=== PATIENT | male | born 1960 | race Caucasian/White ===

== ENCOUNTER 2021-03-28 20:18 | Inpatient (IN) | payer OTHER ==
--- NOTE | 2021-03-29 02:10 | ER ---
Nurse's Notes [facility] Name: Livan George Age: 60 yrs Sex: Male : 1960 Arrival Date: 03/28/2021 Time: 20:20 Bed 10 Private MD: Diagnosis: Coronavirus infection, unspecified;Hypoxia Presentation: 03/28 21:19 Chief complaint: Patient states: he tested positive for COVID and is having shortness bb of breath sats are dropping down in the mid 80"s at home. Coronavirus screen: Client reports previous positive COVID test result. Ebola Screen: No symptoms or risks identified at this time. Initial Sepsis Screen: Does the patient meet any 2 criteria? RR > 20 per min. HR > 90 bpm. Yes Does the patient have a suspected source of infection? Yes: Productive cough/pneumonia. Risk Assessment: Do you want to hurt yourself or someone else? Patient reports no desire to harm self or others. Onset of symptoms was March 2021. 21:19 Method Of Arrival: Wheelchair bb 21:19 Acuity: GALLO 3 bb Triage Assessment: 21:22 General: Appears in no apparent distress. uncomfortable, Behavior is calm, cooperative. bb Pain: Complains of pain in all over. Neuro: Level of Consciousness is awake, alert, obeys commands, Oriented to person, place, time, situation. Cardiovascular: Capillary refill < 3 seconds Patient's skin is warm and dry. Respiratory: Reports shortness of breath Onset: The symptoms/episode began/occurred a few days ago, the patient has mild shortness of breath. GI: No signs and/or symptoms were reported involving the gastrointestinal system. Derm: Skin is pink, warm \\T\\ dry. Musculoskeletal: Circulation, motion, and sensation intact. 21:22 Respiratory: Airway is patent Respiratory effort is labored, Respiratory pattern is bb tachypnea Breath sounds are diminished bilaterally. Historical: - Allergies: 21:22 No Known Allergies; bb - Immunization history:: Adult Immunizations up to date, Client reports receiving the 1st dose of the Covid vaccine. - Social history:: Smoking status: Smoking status: Patient denies any tobacco usage or history of. Screenin/18 03:55 Abuse screen: Denies threats or abuse. Nutritional screening: No deficits noted. lh3 Tuberculosis screening: No symptoms or risk factors identified. Fall Risk No fall in past 12 months (0 pts). No secondary diagnosis (0 pts). IV access (20 points). Ambulatory Aid- None/Bed Rest/Nurse Assist (0 pts). Gait- Normal/Bed Rest/Wheelchair (0 pts) Mental Status- Oriented to own ability (0 pts). Total Esparza Fall Scale indicates No Risk (0-24 pts). Assessment: 03:55 Reassessment: Patient appears in no apparent distress at this time. General: Appears in lh3 no apparent distress. Behavior is calm, cooperative, appropriate for age. Cardiovascular: Rhythm is sinus tachycardia. Vital Signs: 03/28 21:19 BP 133 / 82; Pulse 106; Resp 32 S; Temp 101.6(O); Pulse Ox 94% on 2 lpm NC; Weight bb 117.93 kg (R); Height 6 ft. 0 in. (182.88 cm) (R); Pain 5/10; 03/29 04:10 BP 145 / 72; Pulse 96; Resp 18; Temp 100.8; Pulse Ox 95% on 4 lpm NC; lh3 03/28 21:19 Body Mass Index 35.26 (117.93 kg, 182.88 cm) bb ED Course: 03/28 20:20 Patient arrived in ED. wm 21:22 Triage completed. bb 21:22 Arm band placed on Patient placed in waiting room, Patient notified of wait time. bb Family accompanied patient. 23:06 Madeline Ng FNP-C [facility] kb 23:06 Mati Paris MD is Attending Physician. kb 03/29 00:23 CXR XRAY In Process Unspecified. EDMS 01:20 Matilda Hilario, MARCI is Primary Nurse. lh3 02:09 Oren Guzman MD is Hospitalizing Provider. kb 02:10 CBC with Automated Diff Sent. lh3 02:28 COVID-19 : Document "Date of Symptom Onset" if Symptomatic. Sent. lh3 02:29 Blood Culture Sent. lh3 02:29 C-Reactive Protein Sent. lh3 02:29 Basic Metabolic Panel Sent. lh3 02:29 BMP Sent. lh3 02:29 Blood Culture Adult (2) Sent. lh3 02:29 C-Reactive Protein Sent. lh3 02:29 CBC with Diff Sent. lh3 02:29 D-Dimer Sent. lh3 02:29 Ferritin Sent. lh3 02:29 LFT's Sent. lh3 02:29 Lactate Sent. lh3 02:29 Lipase Sent. lh3 02:29 PT-INR Sent. lh3 02:29 Procalcitonin Sent. lh3 02:30 Ptt, Activated Sent. lh3 02:30 Troponin (emerg Dept Use Only) Sent. lh3 03:36 CT Chest For PE Angio In Process Unspecified. EDMS 03:55 Patient has correct armband on for positive identification. Bed in low position. Call 3 light in reach. Side rails up X 1. 03:55 No provider procedures requiring assistance completed. Inserted saline lock: 20 gauge lh3 in right antecubital area, using aseptic technique. 03:55 Inserted saline lock: 18 gauge in left antecubital area, using aseptic technique. 3 Administered Medications: 02:28 Drug: NS 0.9% 1000 ml Route: IV; Rate: 1000 ml; Site: left antecubital; 3 04:11 Follow up: IV Status: Completed infusion; IV Intake: 1000ml lh3 02:29 Drug: Tylenol 1000 mg Route: PO; lh3 04:12 Follow up: Response: No adverse reaction lh3 Intake: 04:11 IV: 1000ml; Total: 1000ml. 3 Outcome: 02:10 Decision to Hospitalize by Provider. kb 19:07 Patient left the ED. iw Signatures: Dispatcher [employer] EDMS Madeline Ng, PELLETIZER OPERATOR-C PELLETIZER OPERATOR-Alethea Collins RN RN bb Williams, Irene, RN RN iw Marsh, Wendy wm Hardee, Latisha, RN RN lh3
--- NOTE | 2021-03-29 02:10 | EDPHYS ---
Physician Documentation [facility] Name: Livan George Age: 60 yrs Sex: Male : 1960 Arrival Date: 03/28/2021 Time: 20:20 Bed 10 Private MD: ED Physician Mati Paris HPI: 03/29 01:57 This 60 yrs old Male presents to ER via Wheelchair with complaints of kb Breathing Difficulty, Fever, General Weakness. 01:57 The patient has shortness of breath at rest. Onset: The symptoms/episode began/occurred kb last week, and became worse. Duration: The symptoms are continuous. The patient's shortness of breath is aggravated by exertion. Associated signs and symptoms: Pertinent positives: non-productive cough. Severity of symptoms: At their worst the symptoms were moderate in the emergency department the symptoms are unchanged. The patient has not experienced similar symptoms in the past. The patient has not recently seen a physician. Pt reports he has had cough, shortness of breath and fever since last week. Took rapid covid test on and it was positive. States symptoms have progressively gotten worse since onset. States he hasn't had really eaten anything in about 5 days. Feels like he is dehydrated. . Historical: - Allergies: 03/28 21:22 No Known Allergies; bb - Immunization history:: Adult Immunizations up to date, Client reports receiving the 1st dose of the Covid vaccine. - Social history:: Smoking status: Smoking status: Patient denies any tobacco usage or history of. ROS: 03/29 01:55 Abdomen/GI: Negative for abdominal pain, nausea, vomiting, diarrhea, and constipation. kb Constitutional: Positive for body aches, chills, fatigue, fever, malaise. Respiratory: Positive for cough, dyspnea on exertion, shortness of breath. Neuro: Positive for weakness. All other systems are negative. Exam: 01:55 Constitutional: This is a well developed, well nourished patient who is awake, alert, kb and in no acute distress. Head/Face: Normocephalic, atraumatic. ENT: Moist Mucous membranes Respiratory: Respirations even and unlabored. No increased work of breathing, no retractions or nasal flaring. Skin: Warm, dry with normal turgor. Normal color. MS/ Extremity: Pulses equal, no cyanosis. Neurovascular intact. Full, normal range of motion. Neuro: Awake and alert, GCS 15, oriented to person, place, time, and situation. Moves all extremities. Normal gait. Psych: Awake, alert, with orientation to person, place and time. Behavior, mood, and affect are within normal limits. Vital Signs: 03/28 21:19 BP 133 / 82; Pulse 106; Resp 32 S; Temp 101.6(O); Pulse Ox 94% on 2 lpm NC; Weight bb 117.93 kg (R); Height 6 ft. 0 in. (182.88 cm) (R); Pain 5/10; 03/29 04:10 BP 145 / 72; Pulse 96; Resp 18; Temp 100.8; Pulse Ox 95% on 4 lpm NC; lh3 03/28 21:19 Body Mass Index 35.26 (117.93 kg, 182.88 cm) bb MDM: 00:46 Patient medically screened. kb 01:41 Data reviewed: vital signs, nurses notes. Data interpreted: Pulse oximetry: on room air kb is 88 %. Interpretation: hypoxia. 02:09 Counseling: I had a detailed discussion with the patient and/or guardian regarding: the kb historical points, exam findings, and any diagnostic results supporting the discharge/admit diagnosis, lab results, radiology results, the need for further work-up and treatment in the hospital. Physician consultation: Kenny GALARZA was contacted at 02:09, regarding admission, to the telemetry unit. patient's condition, and will see patient in ED. 03/28 23:31 Order name: BMP 03/28 23:31 Order name: Blood Culture Adult (2) 03/28 23:31 Order name: C-Reactive Protein kb 03/28 23:31 Order name: CBC with Diff kb 03/28 23:31 Order name: D-Dimer; Complete Time: 02:45 kb 03/28 23:31 Order name: Ferritin; Complete Time: 02:43 kb 03/28 23:31 Order name: LFT's; Complete Time: 02:43 kb 03/28 23:31 Order name: Lactate; Complete Time: 02:43 kb 03/28 23:31 Order name: Lipase; Complete Time: 02:43 kb 03/28 23:31 Order name: PT-INR; Complete Time: 02:45 kb 03/28 23:31 Order name: Procalcitonin; Complete Time: 02:46 kb 03/28 23:31 Order name: Ptt, Activated; Complete Time: 02:45 kb 03/28 23:31 Order name: Troponin (emerg Dept Use Only); Complete Time: 02:43 kb 03/28 23:31 Order name: Basic Metabolic Panel; Complete Time: 02:43 EDMS 03/28 23:31 Order name: CXR XRAY; Complete Time: 15:01 kb 03/28 23:31 Order name: EKG; Complete Time: 23:32 kb 03/28 23:31 Order name: Cardiac monitoring; Complete Time: 02:29 kb 03/28 23:31 Order name: Droplet/Contact Precautions; Complete Time: 02:29 kb 03/28 23:31 Order name: EKG - Nurse/Tech; Complete Time: 02:29 kb 03/28 23:31 Order name: IV Start; Complete Time: 02:29 kb 03/28 23:31 Order name: Blood Culture EDMS 03/28 23:31 Order name: C-Reactive Protein; Complete Time: 02:43 EDMS 03/28 23:31 Order name: CBC with Automated Diff; Complete Time: 02:43 EDMS 03/29 02:06 Order name: COVID-19 : Document "Date of Symptom Onset" if Symptomatic. kb 03/29 02:44 Order name: CT Chest For PE Angio; Complete Time: 15:01 kb 03/29 03:37 Order name: SARS-COV-2 RT PCR; Complete Time: 15:01 EDMS 03/29 09:56 Order name: Glucose, Ancillary Testing; Complete Time: 15:01 EDMS 03/28 23:31 Order name: Labs collected and sent; Complete Time: 02:29 kb 03/28 23:31 Order name: O2 Per Protocol; Complete Time: 02:29 kb 03/28 23:31 Order name: O2 Sat Monitoring; Complete Time: 02:29 kb Administered Medications: 02:28 Drug: NS 0.9% 1000 ml Route: IV; Rate: 1000 ml; Site: left antecubital; lh3 04:11 Follow up: IV Status: Completed infusion; IV Intake: 1000ml lh3 02:29 Drug: Tylenol 1000 mg Route: PO; lh3 04:12 Follow up: Response: No adverse reaction 3 Disposition: 03/30 07:20 Co-signature as Attending Physician, Mati Paris MD I agree with the assessment and tito plan of care. Disposition Summary: 03/29/21 02:10 Hospitalization Ordered Hospitalization Status: Inpatient Admission kb Provider: Oren Guzman Condition: Stable kb Problem: new kb Symptoms: are unchanged kb Bed/Room Type: Standard kb Location: Telemetry/MedSurg (Inpatient)(03/29/21 16:59) dw Room Assignment: 417(03/29/21 16:59) dw Diagnosis - Coronavirus infection, unspecified kb - Hypoxia kb Forms: - Medication Reconciliation Form kb - SBAR form kb Signatures: Dispatcher [employer] EDMS Madeline Ng FNP-C FNP-Ckb Webb, Martha RN RN Rosalia Karimi RN RN Mati Mijares MD MD cha Ballard, Brenda, RN RN Matilda Cantu RN RN 3 Corrections: (The following items were deleted from the chart) 03/29 02:07 01:41 Data interpreted: Pulse oximetry: on room air is 94 %. Interpretation: normal. kb kb 02:10 02:07 CORONAVIRUS ordered. EDMS EDMS 02:41 02:10 Telemetry/MedSurg (Inpatient) kb mw 02:41 02:10 kb mw 03:08 02:45 Chest For PE Angio+CT.RAD.BRZ ordered. EDMS EDMS 16:59 02:41 [facility] ER HOLD mw dw 16:59 02:41 ERHOLD- mw dw
[2021-03-29 02:22] LABS: Absolute Lymphocytes (CBC) 6.7 K/uL (0.7-4.9); Hematocrit 45.6 % (39.6-49.0); Lymphocytes % 44.2 % (15.3-44.8); MPV 7.8 fL (7.6-11.3); RBC Red Blood Cell Count 5.12 M/uL (4.33-5.43)
[2021-03-29 02:25] LABS: Protime INR 1.39
[2021-03-29 02:42] LABS: ALT/SGPT 35 U/L (12-78); AST/SGOT 61 U/L (15-37); Albumin 3.4 g/dL (3.4-5.0); Alkaline Phosphatase 72 U/L (45-117); BUN Blood Urea Nitrogen 20 mg/dL (7-18); Bicarbonate 30 mmol/L (21-32); Bilirubin Direct 0.2 mg/dL (0-0.2); Bilirubin Total 0.5 mg/dL (0.2-1.0); Glucose Level 126 mg/dL (74-106); Lipase 159 U/L (73-393); Potassium 3.8 mmol/L (3.5-5.1); Protein, Total 8.1 g/dL (6.4-8.2); Sodium Level 132 mmol/L (136-145); Troponin (Emerg Dept Use Only) < 0.02 ng/mL (0.0-0.045)
[2021-03-29] MEDS ORDERED: NA CHLORIDE 0.9% 1,000 ML ONE (02:42)
[2021-03-29] MEDS ORDERED: ACETAMINOPHEN 500 MG TAB ONE ×2 (02:42→17:34)
--- NOTE | 2021-03-29 03:56 | P.HP ---
Certification for Inpatient Patient admitted to: Inpatient With expected LOS: >2 Midnights Patient will require the following post-hospital care: None Practitioner: I am a practitioner with admitting privileges, knowledge of patient current condition, hospital course, and medical plan of care. Services: Services provided to patient in accordance with Admission requirements found in Title 42 Section 412.3 of the Code of Federal Regulations <Kenny Barkley - Last Filed: 03/29/21 03:52> Patient History Date of Service: 03/29/21 Reason for admission: COVID-19 pneumonia, hypoxia History of Present Illness: 60-year-old male with history of diabetes mellitus type 2, hypertension, hyperlipidemia, CLL presents emergency department for shortness of breath. Patient reports testing positive for Covid initially on 03/25/2021 had received 1 dose of the vaccine at the end of February. Patient was noted to be hypoxic on room air saturating in the high 80s at rest. Patient evaluated in the ER labs were significant for white blood cell count 15.2 D-dimer 703 sodium 132 chloride 95 BUN 20 glucose 126 ferritin 1367 C-reactive protein 159 procalcitonin 0.31. ED provider wishes to admit for further evaluation and management of COVID-19 pneumonia with hypoxia. - Past Medical/Surgical History -: Diabetes mellitus type 2 -: Hyperlipidemia -: Hypertension -: CLL -: None Psychosocial/ Personal History: Lives at home with family - Family History Father -: Cancer Brother -: Cancer Sister -: Cancer - Social History Smoking Status: Never smoker Alcohol use: No CD- Drugs: No Caffeine use: Yes Place of Residence: Home <Kenny Barkley - Last Filed: 03/29/21 03:52> Date of Service: 03/29/21 <Oren Guzman - Last Filed: 03/29/21 15:01> Review of Systems 10-point ROS is otherwise unremarkable Respiratory: Cough, Dry, Shortness of Breath, SOB with Excertion <Kenny Barkley - Last Filed: 03/29/21 03:52> Physical Examination - Physical Exam General: Alert, In no apparent distress HEENT: Atraumatic, PERRLA, Mucous membr. moist/pink, EOMI, Sclerae nonicteric Neck: Supple, 2+ carotid pulse no bruit, No LAD, Without JVD or thyroid abnormality Respiratory: Normal air movement, Diminished, Other (Tachypnea) Cardiovascular: Regular rate/rhythm, Normal S1 S2 Gastrointestinal: Normal bowel sounds, No tenderness Musculoskeletal: No tenderness Integumentary: No rashes Neurological: Normal speech, Normal strength at 5/5 x4 extr, Normal tone, Normal affect - Studies Laboratory Data (last 24 hrs) 03/29/21 01:50: PT 16.0 H, INR 1.39, APTT 33.7 03/29/21 01:50: WBC 15.20 H, Hgb 15.2, Hct 45.6, Plt Count 174 03/29/21 01:50: Sodium 132 L, Potassium 3.8, BUN 20 H, Creatinine 1.17, Glucose 126 H, Total Bilirubin 0.5, AST 61 H, ALT 35, Alkaline Phosphatase 72, Lipase 159 <Kenny Barkley - Last Filed: 03/29/21 03:52> - Studies Laboratory Data (last 24 hrs) 03/29/21 01:50: PT 16.0 H, INR 1.39, APTT 33.7 03/29/21 01:50: WBC 15.20 H, Hgb 15.2, Hct 45.6, Plt Count 174 03/29/21 01:50: Sodium 132 L, Potassium 3.8, BUN 20 H, Creatinine 1.17, Glucose 126 H, Total Bilirubin 0.5, AST 61 H, ALT 35, Alkaline Phosphatase 72, Lipase 159 <Oren Guzman - Last Filed: 03/29/21 15:01> Assessment and Plan - Plan Assessment: Acute hypoxic respiratory failure secondary to COVID-19 pneumonia Diabetes mellitus type 2 Hypertension Hyperlipidemia CLL Plan: Acute hypoxic respiratory failure secondary to COVID-19 pneumonia: Continue with ivermectin, baricitinib, IV steroids, oral supplements, pulmonology consult, supplemental oxygen as needed. Diabetes mellitus type 2: AC at bedtime Accu-Chek, sliding scale insulin therapy. A1c with morning labs. Hypertension: Continue medications adjust as necessary. Hyperlipidemia: Continue medications adjust as necessary. CLL: Stable. DVT PPX: Eliquis Code status: Full Discharge Plan: Home Plan to discharge in: Greater than 2 days - Advance Directives Does patient have a Living Will: No Does patient have a Durable POA for Healthcare: No - Code Status/Comfort Care Code Status Assessed: Yes (Full code) Critical Care: No Time Spent Managing Pts Care (In Minutes): 55 <Kenny Barkley - Last Filed: 03/29/21 03:52> - Plan Patient seen/examined this morning on rounds Patient reported some improvement of his symptoms now that he is on oxygen and received steroids Currently on 2-3 L nasal cannula. Significantly elevated inflammatory markers. Risk for worsening Pulmonology consulted <Oren Guzman - Last Filed: 03/29/21 15:01>
[2021-03-29] MEDS ORDERED: ONDANSETRON 4 MG/2 ML VIAL IV PRN (05:06)
[2021-03-29 05:57] VITALS: BMI 38.2
--- NOTE | 2021-03-29 07:13 | RAD REPORT ---
EXAM DESCRIPTION: RAD - Chest Single View - 03/29/2021 12:23 am CLINICAL HISTORY: Cough;Congestion;Dyspnea COMPARISON: Chest For Pe Angio dated 03/29/2021 FINDINGS: Mild to moderate ill-defined bilateral airspace opacities. The heart size is within normal limits.No acute osseous abnormality. No significant pleural effusions or pneumothorax. IMPRESSION: Bilateral airspace disease concerning for multifocal pneumonia. Reference subsequent [facility] CT.
[2021-03-29] MEDS: VITAMIN D 1000 UNIT TAB PO SCH (09:00)
[2021-03-29] MEDS: APIXABAN 5 MG TABLET PO SCH ×2 (09:00→17:56)
[2021-03-29] MEDS: ASPIRIN EC 81 MG TAB PO SCH (09:00)
[2021-03-29] MEDS: THIAMINE HCL 100 MG TABLET PO SCH (09:00)
[2021-03-29] MEDS: METHYLPREDNISOLONE 40 MG INJ IV SCH ×2 (09:00→17:00)
[2021-03-29] MEDS: ZINC SULFATE 220 MG CAP PO SCH (09:00)
[2021-03-29] MEDS: IVERMECTIN 3 MG TABLET PO SCH (09:00)
[2021-03-29] MEDS: ASCORBIC ACID 500 MG TABLET PO SCH ×4 (09:00→21:12)
--- NOTE | 2021-03-29 10:32 | RAD REPORT ---
EXAM DESCRIPTION: CT - Chest For Pe Angio - 03/29/2021 4:15 am CLINICAL HISTORY: DYSPNEA COMPARISON: None Available. TECHNIQUE: CTA of the chest obtained following the uncomplicated intravenous administration of iodin ated contrast. 3-D/MIP reformatted images of the chest available for evaluation. This exam was perfor med according to our departmental dose-optimization program, which includes automated exposure contro l, adjustment of the mA and/or kV according to patient size and/or use of iterative reconstruction te chnique. FINDINGS: Chest: Pulmonary arteries: Contrast bolus is adequate.No filling defects identified in the pulmonary arterie s to suggest pulmonary embolus. Thyroid: No abnormalities of the visualized thyroid. Great Vessels: Great vessels have normal anatomic configuration. Thoracic Aorta: Atherosclerotic calcification of the thoracic aorta. Heart: No cardiomegaly, significant pericardial effusion, or coronary artery atherosclerosis Lymph Nodes: No enlarged mediastinal lymph nodes identified. Esophagus: No abnormalities of the esophagus identified. Other: No additional findings. Lungs: Multifocal bilateral peripheral groundglass opacities. Pleura: No pleural effusion or pneumothorax. Trachea/Airways: No abnormalities of the visualized trachea or airways. Bones: Mild endplate spondylosis. Upper Abdomen: Limited images of the upper abdomen demonstrate no definite abnormalities of visualize d portions of the gallbladder, pancreas, spleen, adrenal glands, or kidneys. Decreased density of t he liver. Scattered diverticula of the colon. IMPRESSION: 1. No pulmonary embolus. 2. Multifocal bilateral peripheral groundglass opacities. Commonly reported imaging features of vir al pneumonia are present. Other processes such as influenza pneumonia and organizing pneumonia, as ca n be seen with drug toxicity and connective tissue disease, can cause a similar imaging pattern. 3. Hepatic steatosis. 4. Diverticulosis without evidence of acute diverticulitis. Electronically signed by: Abdirashid Wilson 03/29/2021 3:49 AM CDT Due to temporary technical issues with the PACS/Fluency reporting system, reports are being signed by the in house radiologist without review as a courtesy to ensure prompt reporting. The interpreting r adiologist is fully responsible for the content of the report.
[2021-03-29] MEDS ORDERED: ASCORBIC ACID 500 MG TABLET ONE ×2 (10:50→13:15)
[2021-03-29] MEDS ORDERED: THIAMINE HCL 100 MG TABLET ONE (10:51)
[2021-03-29] MEDS ORDERED: ZINC SULFATE 220 MG CAP ONE (10:51)
[2021-03-29] MEDS ORDERED: APIXABAN 5 MG TABLET ONE ×2 (10:51→17:35)
[2021-03-29] MEDS ORDERED: ASPIRIN 81 MG CHEWABLE TABLET ONE (10:51)
[2021-03-29] MEDS ORDERED: VITAMIN D 1000 UNIT TAB ONE (10:51)
[2021-03-29] MEDS ORDERED: METHYLPREDNISOLONE 125 MG INJ ONE (12:05)
--- NOTE | 2021-03-29 16:25 | EKG ---
Test Date: 2021-03-29 Test Time: 02:54:56 Covering Machine Tender: YVONNE MEASUREMENT RESULTS: Intervals: Rate: 101 VA: 150 QRSD: 84 QT: 324 QTc: 420 [place]: P: 55 VA: 150 QRS: -26 T: 48 INTERPRETIVE STATEMENTS: Sinus tachycardia Otherwise normal ECG No previous ECG available for comparison Electronically Signed On 03-29-21 16:22:55 CDT by Roddy Pickett
[2021-03-29] MEDS: ACETAMINOPHEN 500 MG TAB PO PRN (17:28)
[2021-03-29] MEDS ORDERED: METHYLPREDNISOLONE 40 MG INJ ONE (17:35)
[2021-03-29] MEDS ORDERED: ATORVASTATIN 20 MG TAB ONE (17:35)
[2021-03-29] MEDS: ATORVASTATIN 40 MG TAB PO SCH (17:56)
--- NOTE | 2021-03-29 21:03 | P.CNS ---
Date of Consult: 03/29/21 Reason for Consult: COVID pneumonia Chief Complaint: COVID-19 pneumonia, hypoxia History of Present Illness: Age 60 AW COVID penumonia, metabloic synd/AW resp failure Allergies No Known Allergies Allergy (Unverified 03/29/21 05:06) - Past Medical/Surgical History -: Diabetes mellitus type 2 -: Hyperlipidemia -: Hypertension -: CLL -: None Psychosocial/ Personal History: Lives at home with family - Family History Father Medical History: Cancer Brother Medical History: Cancer Sister Medical History: Cancer - Social History Alcohol use: No CD- Drugs: No Caffeine use: Yes Place of Residence: Home Review of Systems General: Weakness Respiratory: Shortness of Breath Physical Examination Temp Pulse Resp BP Pulse Ox 98.8 F 98 H 22 H 142/85 H 92 03/29/21 18:28 03/29/21 17:00 03/29/21 17:00 03/29/21 17:00 03/29/21 17:00 General: Alert, In no apparent distress, Oriented x3, Cooperative Laboratory Data (last 24 hrs) 03/29/21 01:50: PT 16.0 H, INR 1.39, APTT 33.7 03/29/21 01:50: WBC 15.20 H, Hgb 15.2, Hct 45.6, Plt Count 174 03/29/21 01:50: Sodium 132 L, Potassium 3.8, BUN 20 H, Creatinine 1.17, Glucose 126 H, Total Bilirubin 0.5, AST 61 H, ALT 35, Alkaline Phosphatase 72, Lipase 159 - Problems (1) Pneumonia due to COVID-19 virus Current Visit: Yes Status: Acute Plan: Age 60 X1 dose of vaccine AW mild COVID penumonia/ Poss DC home am/febrile/NC O2
[2021-03-30] MEDS: METHYLPREDNISOLONE 40 MG INJ IV SCH ×3 (02:21→16:16)
[2021-03-30 03:03] LABS: Urine Appearance CLEAR (Clear); Urine Bilirubin NEGATIVE (Negative); Urine Blood 2+ (Negative); Urine Color YELLOW (Yellow); Urine Glucose NEGATIVE (Negative); Urine Protein 2+ (Negative)
[2021-03-30 03:12] LABS: Urine Microscopic Reflex ORDER UMIC
[2021-03-30 03:55] LABS: Absolute Lymphocytes (CBC) 9.4 K/uL (0.7-4.9); Basophils % 0.1 % (0-1.3); Hematocrit 43.9 % (39.6-49.0); Lymphocytes % 60.4 % (15.3-44.8); MPV 7.9 fL (7.6-11.3); RBC Red Blood Cell Count 4.89 M/uL (4.33-5.43)
[2021-03-30 04:37] LABS: Albumin 2.7 g/dL (3.4-5.0); Bilirubin Total 0.4 mg/dL (0.2-1.0); Ferritin 1929.8 ng/mL (26-388); Magnesium 2.2 mg/dL (1.8-2.4); Potassium 4.1 mmol/L (3.5-5.1); Thyroid Stimulating Hormone 0.239 uIU/mL (0.360-3.740)
[2021-03-30 04:53] LABS: Smudge Cells 46
[2021-03-30 04:54] LABS: Blood Morphology Comment NOT SEEN (NOT SEEN); Platelet Estimate ADEQ
[2021-03-30 05:22] LABS: Urine Bacteria <20 /HPF (NONE SEEN); Urine RBC NONE SEEN /HPF (NONE SEEN); Urine Urothelial Cells <5 /HPF (NONE SEEN)
[2021-03-30] MEDS: ZINC SULFATE 220 MG CAP PO SCH (09:29)
[2021-03-30] MEDS: APIXABAN 5 MG TABLET PO SCH ×2 (09:29→21:00)
[2021-03-30] MEDS: VITAMIN D 1000 UNIT TAB PO SCH (09:29)
[2021-03-30] MEDS: ASCORBIC ACID 500 MG TABLET PO SCH ×4 (09:29→21:00)
[2021-03-30] MEDS: THIAMINE HCL 100 MG TABLET PO SCH (09:29)
[2021-03-30] MEDS: ASPIRIN EC 81 MG TAB PO SCH (09:32)
[2021-03-30] MEDS: BENZONATATE 100 MG CAP PO PRN ×2 (09:38→18:36)
[2021-03-30] MEDS: ACETAMINOPHEN 500 MG TAB PO PRN ×2 (09:38→18:36)
--- NOTE | 2021-03-30 14:24 | P.PN ---
Subjective Date of Service: 03/30/21 Chief Complaint: COVID-19 pneumonia, hypoxia Subjective: Improving (Doign well) Review of Systems General: Weakness Respiratory: Shortness of Breath Physical Examination - Vital Signs Temperature: 98.9 F Blood Pressure: 120/75 Pulse: 96 Respirations: 24 Pulse Ox (%): 88 - Physical Exam General: Oriented x3, Cooperative Assessment & Plan - Problems (Diagnosis) (1) Pneumonia due to COVID-19 virus Current Visit: Yes Status: Acute Plan: Doign well/ Fever weak/ plan for DC home on steroids/ albs reviewed
--- NOTE | 2021-03-30 14:41 | P.PN ---
Subjective Date of Service: 03/30/21 Chief Complaint: COVID-19 pneumonia, hypoxia Subjective: No new changes (Feels about the same. Febrile to 102 this morning. States other than fever he has been feeling okay. On 3-4 L nasal cannula. No new symptoms or complaints. No status With shortness of breath and cough per patient. Inflammatory markers remain significantly elevated as well.) Review of Systems 10-point ROS is otherwise unremarkable Physical Examination - Vital Signs Temperature: 98.9 F Blood Pressure: 120/75 Pulse: 96 Respirations: 24 Pulse Ox (%): 88 Assessment & Plan Physician Review Additional Text: Physical Exam General: Alert, mild distress HEENT: Flushed face, normal conjunctiva, sclera anicteric Respiratory: Mild tachypnea, overall nonlabored on 3 L nasal cannula Cardiovascular: Regular rate/rhythm, Normal S1 S2 Gastrointestinal: Soft, nontender, nondistended Musculoskeletal: No joint tenderness Integumentary: No rashes Problem list Acute hypoxic respiratory failure secondary to COVID-19 pneumonia Diabetes mellitus type 2 Hypertension Hyperlipidemia CLL Continue treatment per COVID protocol, IV steroids, vitamin supplementation, oxygen supplementation Wean oxygen as tolerated Pulmonology consulted Inflammatory markers remain significantly elevated, patient history of CLL. Patient is high risk Continues with fever to 102. Discussed with pulmonology, hold off on antibiotics for now We will monitor patient through today If stable/improved, hopeful discharge tomorrow morning. Will need home O2 VTE: carlinqusanya Time Spent Managing Pts Care (In Minutes): 35
[2021-03-30] MEDS: ATORVASTATIN 40 MG TAB PO SCH (21:00)
[2021-03-30] MEDS ORDERED: IVERMECTIN 3 MG TABLET PO SCH (21:01)
[2021-03-30] MEDS ORDERED: D50W 25 GM/50 ML SYRINGE IV PRN (22:02)
[2021-03-30] MEDS ORDERED: GLUCAGON 1 MG/VIAL IM PRN (22:02)
[2021-03-30] MEDS: INSULIN -REGULAR HUMAN 50 UNIT/0.5 ML ML SQ SCH (22:23)
[2021-03-31] MEDS: METHYLPREDNISOLONE 40 MG INJ IV SCH ×3 (00:05→16:35)
[2021-03-31] MEDS: ACETAMINOPHEN 500 MG TAB PO PRN ×2 (00:06→11:31)
[2021-03-31] MEDS: BENZONATATE 100 MG CAP PO PRN ×3 (00:06→20:46)
[2021-03-31 04:24] LABS: Absolute Lymphocytes (CBC) 11.6 K/uL (0.7-4.9); Basophils % 0.1 % (0-1.3); Hematocrit 41.3 % (39.6-49.0); Lymphocytes % 52.6 % (15.3-44.8); RBC Red Blood Cell Count 4.63 M/uL (4.33-5.43)
[2021-03-31 05:09] LABS: ALT/SGPT 37 U/L (12-78); AST/SGOT 84 U/L (15-37); Albumin 2.5 g/dL (3.4-5.0); Alkaline Phosphatase 58 U/L (45-117); BUN Blood Urea Nitrogen 26 mg/dL (7-18); Bicarbonate 30 mmol/L (21-32); Bilirubin Total 0.4 mg/dL (0.2-1.0); Glucose Level 159 mg/dL (74-106); Magnesium 2.2 mg/dL (1.8-2.4); Potassium 3.8 mmol/L (3.5-5.1); Protein, Total 6.6 g/dL (6.4-8.2); Sodium Level 135 mmol/L (136-145)
[2021-03-31] MEDS: INSULIN -REGULAR HUMAN 50 UNIT/0.5 ML ML SQ SCH ×4 (07:30→20:31)
--- NOTE | 2021-03-31 07:34 | RAD REPORT ---
EXAM DESCRIPTION: RAD - Chest Single View - 03/31/2021 5:12 am CLINICAL HISTORY: hypoxia, f/u covid, r/o edema/effusion COMPARISON: March 28 portable chest, March 29 CT chest TECHNIQUE: AP portable chest image was obtained 03/31/2021 5:12 am . FINDINGS: Bilateral pneumonia findings are present not substantially different from comparison. Trac hea is midline. Heart size magnified by shallow inspiration. No measurable pleural effusion and no pn eumothorax. No acute bony abnormality seen. No acute aortic findings suspected. IMPRESSION: Stable bilateral COVID-19 pneumonia pattern from March 28.
[2021-03-31] MEDS ORDERED: POTASSIUM CL SA 10 MEQ TAB PO ONE (09:00)
[2021-03-31] MEDS: VITAMIN D 1000 UNIT TAB PO SCH (09:35)
[2021-03-31] MEDS: ASCORBIC ACID 500 MG TABLET PO SCH ×4 (09:36→20:32)
[2021-03-31] MEDS: THIAMINE HCL 100 MG TABLET PO SCH (09:36)
[2021-03-31] MEDS: ASPIRIN EC 81 MG TAB PO SCH (09:36)
[2021-03-31] MEDS: IVERMECTIN 3 MG TABLET PO SCH (09:36)
[2021-03-31] MEDS: ZINC SULFATE 220 MG CAP PO SCH (09:36)
[2021-03-31] MEDS: APIXABAN 5 MG TABLET PO SCH ×2 (09:36→20:32)
[2021-03-31 11:34] LABS: Blood Morphology Comment NOT SEEN (NOT SEEN); Platelet Estimate ADEQ
--- NOTE | 2021-03-31 15:35 | P.PN ---
Subjective Date of Service: 03/31/21 Chief Complaint: COVID-19 pneumonia, hypoxia Subjective: Worsening (More short of breath and tired today. Continues to be febrile intermittently. No nausea/vomiting, no abdominal pain, no dysuria. Chest x-ray unchanged, inflammatory markers worsen) Review of Systems 10-point ROS is otherwise unremarkable Physical Examination - Vital Signs Temperature: 98.8 F Blood Pressure: 135/74 Pulse: 100 Respirations: 28 Pulse Ox (%): 90 Assessment & Plan Physician Review Additional Text: Physical Exam General: Alert, mild distress HEENT: Flushed face, normal conjunctiva, sclera anicteric Respiratory: Mild tachypnea, mildly labored on nonrebreather Cardiovascular: Regular rate/rhythm, Normal S1 S2 Gastrointestinal: Soft, nontender, nondistended Musculoskeletal: No joint tenderness Integumentary: No rashes Problem list Acute hypoxic respiratory failure secondary to COVID-19 pneumonia Diabetes mellitus type 2 Hypertension Hyperlipidemia CLL Continue treatment per COVID protocol, IV steroids, vitamin supplementation, oxygen supplementation Wean oxygen as tolerated Pulmonology consulted Inflammatory markers remain significantly elevated, patient history of CLL. Patient is high risk Inflammatory markers worsened, CXR unchanged Continues with fevers. Discussed with pulmonology, hold off on antibiotics for now Baricitinib ordered 03/31 Will need home O2 VTE: eliquis Dispo: Anticipate hospitalization > 2 days Time Spent Managing Pts Care (In Minutes): 40
[2021-03-31] MEDS: BARICITINIB 2 MG TABLET PO SCH (16:35)
[2021-03-31] MEDS: ATORVASTATIN 40 MG TAB PO SCH (20:32)
[2021-04-01] MEDS: METHYLPREDNISOLONE 40 MG INJ IV SCH ×3 (01:01→17:40)
[2021-04-01 04:37] LABS: Absolute Lymphocytes (CBC) 15.3 K/uL (0.7-4.9); Lymphocytes % 55.1 % (15.3-44.8); RBC Red Blood Cell Count 4.68 M/uL (4.33-5.43)
[2021-04-01 05:20] LABS: Albumin 2.8 g/dL (3.4-5.0); Bilirubin Direct 0.2 mg/dL (0-0.2); Bilirubin Total 0.5 mg/dL (0.2-1.0); C-Reactive Protein 63.6 mg/L (<3.00); Magnesium 2.3 mg/dL (1.8-2.4); Potassium 4.3 mmol/L (3.5-5.1); Protein, Total 7.1 g/dL (6.4-8.2)
[2021-04-01] MEDS: ACETAMINOPHEN 500 MG TAB PO PRN (05:27)
--- NOTE | 2021-04-01 06:22 | P.PN ---
Subjective Date of Service: 04/01/21 Chief Complaint: COVID-19 pneumonia, hypoxia Subjective: Worsening (Feels about the same as yesterday, "feels good", oxygen requirement increasing. CRP improved, ferritin worsened. Patient denies other symptoms, no nausea/vomiting, no abdominal pain, no dysuria, no diarrhea, no rash), Other (increasing O2 requirement, increased leukocytosis) Review of Systems 10-point ROS is otherwise unremarkable Physical Examination - Vital Signs Temperature: 99.8 F Blood Pressure: 132/74 Pulse: 102 Respirations: 20 Pulse Ox (%): 86 Assessment & Plan Physician Review Additional Text: Physical Exam General: Alert, mild distress HEENT: Flushed face, normal conjunctiva, sclera anicteric Respiratory: Mild tachypnea, non labored on nonrebreather Cardiovascular: Regular rate/rhythm, Normal S1 S2 Gastrointestinal: Soft, nontender, nondistended Musculoskeletal: No joint tenderness Integumentary: No rashes, no lesions Problem list Acute hypoxic respiratory failure secondary to COVID-19 pneumonia Diabetes mellitus type 2, [id number] Hypertension Hyperlipidemia CLL Continue treatment per COVID protocol, IV steroids, vitamin supplementation, oxygen supplementation Wean oxygen as tolerated Pulmonology consulted Inflammatory markers remain significantly elevated, patient history of CLL. Patient is high risk Baricitinib started 03/31 Leukocytosis continues to worsen, possibly affected by CLL history Start Levaquin 04/01, patient has been having high fevers as well Will need home O2 VTE: eliquis Dispo: Anticipate hospitalization > 2 days Time Spent Managing Pts Care (In Minutes): 35
[2021-04-01] MEDS: INSULIN -REGULAR HUMAN 50 UNIT/0.5 ML ML SQ SCH ×4 (07:30→21:00)
[2021-04-01 07:45] LABS: Ferritin 2667.6 ng/mL (26-388)
[2021-04-01] MEDS: ASPIRIN EC 81 MG TAB PO SCH (09:11)
[2021-04-01] MEDS: APIXABAN 5 MG TABLET PO SCH ×2 (09:12→21:18)
[2021-04-01] MEDS: ASCORBIC ACID 500 MG TABLET PO SCH ×4 (09:12→21:18)
[2021-04-01] MEDS: VITAMIN D 1000 UNIT TAB PO SCH (09:12)
[2021-04-01] MEDS: levoFLOXacin 750 MG TAB PO SCH (09:13)
[2021-04-01] MEDS: ZINC SULFATE 220 MG CAP PO SCH (09:13)
[2021-04-01] MEDS: THIAMINE HCL 100 MG TABLET PO SCH (09:13)
[2021-04-01] MEDS: BARICITINIB 2 MG TABLET PO SCH (09:13)
[2021-04-01 13:31] LABS: Blood Morphology Comment NOT SEEN (NOT SEEN); Platelet Estimate ADEQ
[2021-04-01] MEDS ORDERED: FUROSEMIDE 20 MG/ 2ML VIAL IV ONE (15:47)
--- NOTE | 2021-04-01 15:48 | P.PN ---
Subjective Date of Service: 04/01/21 Chief Complaint: COVID-19 pneumonia, hypoxia No change still requiring high conc of Fio2 Review of Systems 10-point ROS is otherwise unremarkable Physical Examination - Vital Signs Temperature: 99.8 F Blood Pressure: 132/74 Pulse: 102 Respirations: 20 Pulse Ox (%): 86 - Physical Exam General: Alert, Oriented x3, Cooperative Assessment & Plan - Problems (Diagnosis) (1) Pneumonia due to COVID-19 virus Current Visit: Yes Status: Acute Plan: Resp failure O2 requirements increassing/ WBC elevated on Levaquin/ x1 dose of lasix/max [place]
[2021-04-01] MEDS: ENSURE HIGH PROTEIN 237 ML CAN PO SCH (21:00)
[2021-04-01] MEDS: ATORVASTATIN 40 MG TAB PO SCH (21:18)
[2021-04-02] MEDS: METHYLPREDNISOLONE 40 MG INJ IV SCH ×3 (00:51→16:35)
[2021-04-02] MEDS: ACETAMINOPHEN 500 MG TAB PO PRN (01:30)
[2021-04-02 06:54] LABS: Absolute Lymphocytes (CBC) 22.5 K/uL (0.7-4.9); Basophils % 0.1 % (0-1.3); Hematocrit 43.2 % (39.6-49.0); Lymphocytes % 56.1 % (15.3-44.8); MPV 7.7 fL (7.6-11.3); RBC Red Blood Cell Count 4.81 M/uL (4.33-5.43)
[2021-04-02 07:20] LABS: ALT/SGPT 68 U/L (12-78); AST/SGOT 109 U/L (15-37); Albumin 2.6 g/dL (3.4-5.0); Alkaline Phosphatase 68 U/L (45-117); BUN Blood Urea Nitrogen 39 mg/dL (7-18); Bicarbonate 30 mmol/L (21-32); Bilirubin Direct 0.3 mg/dL (0-0.2); Bilirubin Total 0.7 mg/dL (0.2-1.0); Glucose Level 189 mg/dL (74-106); Magnesium 2.5 mg/dL (1.8-2.4); Potassium 4.2 mmol/L (3.5-5.1); Protein, Total 7.1 g/dL (6.4-8.2); Sodium Level 137 mmol/L (136-145)
[2021-04-02] MEDS: INSULIN -REGULAR HUMAN 50 UNIT/0.5 ML ML SQ SCH ×4 (07:30→21:48)
[2021-04-02] MEDS: ASCORBIC ACID 500 MG TABLET PO SCH ×4 (08:00→20:48)
[2021-04-02] MEDS: ZINC SULFATE 220 MG CAP PO SCH (08:00)
[2021-04-02] MEDS: VITAMIN D 1000 UNIT TAB PO SCH (08:00)
[2021-04-02] MEDS: BARICITINIB 2 MG TABLET PO SCH (08:00)
[2021-04-02] MEDS: ASPIRIN EC 81 MG TAB PO SCH (08:00)
[2021-04-02] MEDS: ENSURE HIGH PROTEIN 237 ML CAN PO SCH ×2 (08:00→20:48)
[2021-04-02] MEDS: THIAMINE HCL 100 MG TABLET PO SCH (08:01)
[2021-04-02] MEDS: levoFLOXacin 750 MG TAB PO SCH (08:06)
[2021-04-02] MEDS: APIXABAN 5 MG TABLET PO SCH ×2 (08:06→20:48)
[2021-04-02 08:27] LABS: Ferritin > 2000.0 ng/mL (26-388)
--- NOTE | 2021-04-02 09:29 | RAD REPORT ---
EXAM DESCRIPTION: RAD - Chest Single View - 04/02/2021 8:51 am CLINICAL HISTORY: hypoxia, fever, covid, CLL COMPARISON: Portable March 31, CT chest March 29 TECHNIQUE: AP portable chest image was obtained 04/02/2021 8:51 am . FINDINGS: Lung volumes are low. Better lung parenchymal opacification is similar to slightly improve d. Heart and vasculature are normal. No measurable pleural effusion and no pneumothorax. No acute bon y abnormality seen. No acute aortic findings suspected. IMPRESSION: Bilateral pneumonia findings, more notable on the left base, similar to slightly improve d from comparison.
[2021-04-02 10:49] LABS: Blood Morphology Comment NOT SEEN (NOT SEEN); Platelet Estimate ADEQ
--- NOTE | 2021-04-02 15:10 | P.PN ---
Subjective Date of Service: 04/02/21 Chief Complaint: COVID-19 pneumonia, hypoxia Subjective: Worsening (Oxygen requirement increasing, patient very short of breath. Hypoxic quickly when he removed his mask overnight, and had some temporary mild confusion. Feeling better this morning. Denies any new complaints) Review of Systems 10-point ROS is otherwise unremarkable Physical Examination - Vital Signs Temperature: 98.9 F Blood Pressure: 153/90 Pulse: 95 Respirations: 25 Pulse Ox (%): 86 Assessment & Plan Physician Review Additional Text: Physical Exam General: Alert, mild distress HEENT: Flushed face, normal conjunctiva, sclera anicteric Respiratory: Mild tachypnea, non labored on nonrebreather Cardiovascular: Regular rate/rhythm, Normal S1 S2 Gastrointestinal: Soft, nontender, nondistended Musculoskeletal: No joint tenderness Integumentary: No rashes, no lesions Problem list Acute hypoxic respiratory failure secondary to COVID-19 pneumonia Diabetes mellitus type 2, [id number]-ciodrtvya Hypertension Hyperlipidemia CLL Continue treatment per COVID protocol, IV steroids, vitamin supplementation, oxygen supplementation Wean oxygen as tolerated Pulmonology consulted Inflammatory markers improved Baricitinib started 03/31 Leukocytosis continues to worsen, possibly affected by CLL history. Reviewed with his oncologist, Dr. Ornelas, no treatment needed regarding CLL at this time Started Levaquin empirically on 04/01, patient has been having high fevers as well Will need home O2 VTE: eliquis Dispo: Anticipate hospitalization > 2 days Time Spent Managing Pts Care (In Minutes): 35
[2021-04-02] MEDS: ATORVASTATIN 40 MG TAB PO SCH (20:48)
[2021-04-03] MEDS: METHYLPREDNISOLONE 40 MG INJ IV SCH ×2 (01:01→08:02)
[2021-04-03 05:24] LABS: Absolute Lymphocytes (CBC) 27.2 K/uL (0.7-4.9); Basophils % 0.1 % (0-1.3); Hematocrit 40.4 % (39.6-49.0); Lymphocytes % 64.2 % (15.3-44.8); MPV 7.6 fL (7.6-11.3); RBC Red Blood Cell Count 4.51 M/uL (4.33-5.43)
[2021-04-03 05:48] LABS: ALT/SGPT 66 U/L (12-78); AST/SGOT 75 U/L (15-37); Albumin 2.4 g/dL (3.4-5.0); Alkaline Phosphatase 69 U/L (45-117); BUN Blood Urea Nitrogen 41 mg/dL (7-18); Bicarbonate 31 mmol/L (21-32); Bilirubin Direct 0.3 mg/dL (0-0.2); Bilirubin Total 0.6 mg/dL (0.2-1.0); Ferritin 1986.9 ng/mL (26-388); Glucose Level 210 mg/dL (74-106); Magnesium 2.4 mg/dL (1.8-2.4); Potassium 4.7 mmol/L (3.5-5.1); Protein, Total 6.7 g/dL (6.4-8.2); Sodium Level 139 mmol/L (136-145)
--- NOTE | 2021-04-03 06:29 | P.PN ---
Subjective Date of Service: 04/03/21 Chief Complaint: COVID-19 pneumonia, hypoxia Subjective: Improving (Feels slight improvement today, feels having more energy, ambulating slightly easier, still requiring high levels of oxygen supplementation. Inflammatory markers slightly improved denies any other symptoms) Review of Systems 10-point ROS is otherwise unremarkable Physical Examination - Vital Signs Temperature: 98.5 F Blood Pressure: 152/88 Pulse: 78 Respirations: 18 Pulse Ox (%): 92 - Studies Microbiology Data (last 24 hrs): 03/29/21 02:00 Blood - Blood Aerobic Blood Culture - Final No growth in 5 days. 03/29/21 02:00 Blood - Blood Anaerobic Blood Culture - Final No growth in 5 days. 03/29/21 01:50 Blood - Blood Aerobic Blood Culture - Final No growth in 5 days. 03/29/21 01:50 Blood - Blood Anaerobic Blood Culture - Final No growth in 5 days. Assessment & Plan Physician Review Additional Text: Physical Exam General: Alert, NAD HEENT: Flushed face, normal conjunctiva, sclera anicteric Respiratory: Mild tachypnea, non labored on nonrebreather Cardiovascular: Regular rate/rhythm, Normal S1 S2 Gastrointestinal: Soft, nontender, nondistended Musculoskeletal: No joint tenderness Integumentary: No rashes, no lesions Problem list Acute hypoxic respiratory failure secondary to COVID-19 pneumonia Diabetes mellitus type 2, [id number] Hypertension Hyperlipidemia CLL Continue treatment per COVID protocol, IV steroids, vitamin supplementation, oxygen supplementation Wean oxygen as tolerated Pulmonology consulted Inflammatory markers improved Baricitinib started 03/31 Leukocytosis continues to worsen, possibly affected by CLL history. Reviewed with his oncologist, Dr. Ornelas, no treatment needed regarding CLL at this time Started Levaquin empirically on 04/01, patient has been having high fevers as well Will need home O2 VTE: eliquis Dispo: Anticipate hospitalization > 2 days Time Spent Managing Pts Care (In Minutes): 40
[2021-04-03] MEDS: ASPIRIN EC 81 MG TAB PO SCH (08:01)
[2021-04-03] MEDS: VITAMIN D 1000 UNIT TAB PO SCH (08:01)
[2021-04-03] MEDS: THIAMINE HCL 100 MG TABLET PO SCH (08:02)
[2021-04-03] MEDS: BARICITINIB 2 MG TABLET PO SCH (08:02)
[2021-04-03] MEDS: levoFLOXacin 750 MG TAB PO SCH (08:02)
[2021-04-03] MEDS: ASCORBIC ACID 500 MG TABLET PO SCH ×4 (08:03→20:29)
[2021-04-03] MEDS: ZINC SULFATE 220 MG CAP PO SCH (08:03)
[2021-04-03] MEDS: INSULIN -REGULAR HUMAN 50 UNIT/0.5 ML ML SQ SCH ×4 (08:03→20:30)
[2021-04-03] MEDS: APIXABAN 5 MG TABLET PO SCH ×2 (08:03→20:29)
[2021-04-03] MEDS: ENSURE HIGH PROTEIN 237 ML CAN PO SCH ×2 (08:04→20:29)
[2021-04-03] MEDS ORDERED: clonazePAM 0.5 MG TAB PO PRN (15:34)
[2021-04-03] MEDS: METHYLPREDNISOLONE 125 MG INJ IV SCH (16:47)
[2021-04-03] MEDS: ATORVASTATIN 40 MG TAB PO SCH (20:29)
[2021-04-04] MEDS: METHYLPREDNISOLONE 125 MG INJ IV SCH ×3 (00:48→16:14)
[2021-04-04 06:33] LABS: ALT/SGPT 72 U/L (12-78); AST/SGOT 68 U/L (15-37); Albumin 2.6 g/dL (3.4-5.0); Alkaline Phosphatase 74 U/L (45-117); BUN Blood Urea Nitrogen 42 mg/dL (7-18); Bicarbonate 31 mmol/L (21-32); Bilirubin Direct 0.3 mg/dL (0-0.2); Bilirubin Total 0.8 mg/dL (0.2-1.0); Ferritin 1743.9 ng/mL (26-388); Glucose Level 212 mg/dL (74-106); Magnesium 2.5 mg/dL (1.8-2.4); Potassium 4.8 mmol/L (3.5-5.1); Sodium Level 138 mmol/L (136-145)
[2021-04-04 06:35] LABS: Hematocrit 42.8 % (39.6-49.0); Lymphocytes % 65.6 % (15.3-44.8); MPV 7.9 fL (7.6-11.3); RBC Red Blood Cell Count 4.83 M/uL (4.33-5.43)
[2021-04-04] MEDS: INSULIN -REGULAR HUMAN 50 UNIT/0.5 ML ML SQ SCH ×4 (08:30→21:58)
[2021-04-04 08:42] LABS: Platelet Estimate ADEQ
[2021-04-04 08:43] LABS: Blood Morphology Comment NOT SEEN (NOT SEEN)
[2021-04-04] MEDS: BARICITINIB 2 MG TABLET PO SCH (09:04)
[2021-04-04] MEDS: VITAMIN D 1000 UNIT TAB PO SCH (09:05)
[2021-04-04] MEDS: levoFLOXacin 750 MG TAB PO SCH (09:05)
[2021-04-04] MEDS: ASCORBIC ACID 500 MG TABLET PO SCH ×4 (09:05→21:42)
[2021-04-04] MEDS: ASPIRIN EC 81 MG TAB PO SCH (09:05)
[2021-04-04] MEDS: THIAMINE HCL 100 MG TABLET PO SCH (09:05)
[2021-04-04] MEDS: APIXABAN 5 MG TABLET PO SCH ×2 (09:05→21:42)
[2021-04-04] MEDS: ENSURE HIGH PROTEIN 237 ML CAN PO SCH ×2 (09:06→21:00)
[2021-04-04] MEDS: ZINC SULFATE 220 MG CAP PO SCH (09:08)
--- NOTE | 2021-04-04 16:57 | P.PN ---
Subjective Date of Service: 04/04/21 Chief Complaint: COVID-19 pneumonia, hypoxia Patient maintained on 15 L oxygen by nasal cannula. No new complain. Physical Examination - Vital Signs Temperature: 97.3 F Blood Pressure: 132/77 Pulse: 87 Respirations: 22 Pulse Ox (%): 90 - Physical Exam General: Alert, In no apparent distress Neck: JVD not distended Respiratory: Other (Nonlabored breathing) Cardiovascular: No edema, Regular rate/rhythm Gastrointestinal: Soft and benign, Non-distended Musculoskeletal: No swelling Integumentary: No rashes Assessment And Plan Physician Review Additional Text: OProblem list Acute hypoxic respiratory failure secondary to COVID-19 pneumonia Diabetes mellitus type 2, [id number]-jgatdxwoe Hypertension Hyperlipidemia CLL Continue treatment per COVID protocol, IV steroids, vitamin supplementation, oxygen supplementation Wean oxygen as tolerated Pulmonology is following. Inflammatory markers improved Baricitinib started 03/31 Leukocytosis continues to worsen, possibly affected by CLL history. No treatment needed regarding CLL at this time Started Levaquin empirically on 04/01, patient has been having high fevers as well. Continue Levaquin. VTE: eliquis
[2021-04-04] MEDS: ATORVASTATIN 40 MG TAB PO SCH (21:42)
[2021-04-05] MEDS: METHYLPREDNISOLONE 125 MG INJ IV SCH ×3 (00:11→16:57)
[2021-04-05 06:43] LABS: Absolute Lymphocytes (CBC) 32.7 K/uL (0.7-4.9); Basophils % 0.1 % (0-1.3); Hematocrit 39.9 % (39.6-49.0); Lymphocytes % 67.3 % (15.3-44.8); RBC Red Blood Cell Count 4.46 M/uL (4.33-5.43)
[2021-04-05 07:09] LABS: ALT/SGPT 77 U/L (12-78); AST/SGOT 67 U/L (15-37); Albumin 2.6 g/dL (3.4-5.0); Alkaline Phosphatase 83 U/L (45-117); BUN Blood Urea Nitrogen 38 mg/dL (7-18); Bicarbonate 35 mmol/L (21-32); Bilirubin Direct 0.3 mg/dL (0-0.2); Bilirubin Total 0.9 mg/dL (0.2-1.0); Glucose Level 251 mg/dL (74-106); Potassium 4.8 mmol/L (3.5-5.1); Protein, Total 6.7 g/dL (6.4-8.2); Sodium Level 137 mmol/L (136-145)
[2021-04-05] MEDS: INSULIN -REGULAR HUMAN 50 UNIT/0.5 ML ML SQ SCH ×4 (08:09→20:33)
[2021-04-05] MEDS: ASPIRIN EC 81 MG TAB PO SCH (08:10)
[2021-04-05] MEDS: APIXABAN 5 MG TABLET PO SCH ×2 (08:10→20:34)
[2021-04-05] MEDS: ASCORBIC ACID 500 MG TABLET PO SCH ×4 (08:10→20:33)
[2021-04-05] MEDS: levoFLOXacin 750 MG TAB PO SCH (08:10)
[2021-04-05] MEDS: ZINC SULFATE 220 MG CAP PO SCH (08:11)
[2021-04-05] MEDS: THIAMINE HCL 100 MG TABLET PO SCH (08:11)
[2021-04-05] MEDS: BARICITINIB 2 MG TABLET PO SCH (08:11)
[2021-04-05] MEDS: VITAMIN D 1000 UNIT TAB PO SCH (08:11)
[2021-04-05] MEDS: ENSURE HIGH PROTEIN 237 ML CAN PO SCH ×2 (08:12→20:34)
[2021-04-05 13:33] LABS: Blood Morphology Comment NOT SEEN (NOT SEEN); Platelet Estimate INCR
--- NOTE | 2021-04-05 14:50 | P.PN ---
Subjective Date of Service: 04/05/21 Chief Complaint: COVID-19 pneumonia, hypoxia Patient maintained on 15 L oxygen by nasal cannula. No changes from yesterday Physical Examination - Vital Signs Temperature: 97.1 F Blood Pressure: 128/76 Pulse: 82 Respirations: 21 Pulse Ox (%): 90 - Physical Exam General: Alert, In no apparent distress Respiratory: Other (Nonlabored breathing) Cardiovascular: No edema, Regular rate/rhythm Gastrointestinal: Soft and benign, Non-distended Musculoskeletal: No swelling Integumentary: No rashes Neurological: Normal strength at 5/5 x4 extr Assessment And Plan Physician Review Additional Text: OProblem list Acute hypoxic respiratory failure secondary to COVID-19 pneumonia Diabetes mellitus type 2, [id number]-scgrqpbwr Hypertension Hyperlipidemia CLL Continue treatment per COVID protocol, IV steroids, vitamin supplementation, oxy gen supplementation Wean oxygen as tolerated Pulmonology is following. Baricitinib started 03/31 Leukocytosis continues to worsen, possibly affected by CLL history. No treatment needed regarding CLL at this time. Started Levaquin empirically on 04/01, patient has been having high fevers as well. Continue Levaquin. Resume prone position as tolerated. Incentive spirometry. VTE: eliquis
[2021-04-05] MEDS: ATORVASTATIN 40 MG TAB PO SCH (20:33)
[2021-04-06 05:39] LABS: Basophils % 0.1 % (0-1.3); Hematocrit 39.8 % (39.6-49.0); Lymphocytes % 66.4 % (15.3-44.8); MPV 7.1 fL (7.6-11.3); RBC Red Blood Cell Count 4.39 M/uL (4.33-5.43)
[2021-04-06 06:17] LABS: ALT/SGPT 78 U/L (12-78); AST/SGOT 60 U/L (15-37); Albumin 2.6 g/dL (3.4-5.0); Alkaline Phosphatase 83 U/L (45-117); BUN Blood Urea Nitrogen 37 mg/dL (7-18); Bicarbonate 32 mmol/L (21-32); Bilirubin Total 0.8 mg/dL (0.2-1.0); Glucose Level 238 mg/dL (74-106); Potassium 5.3 mmol/L (3.5-5.1); Protein, Total 6.4 g/dL (6.4-8.2); Sodium Level 136 mmol/L (136-145)
[2021-04-06 06:31] LABS: Bilirubin Direct 0.2 mg/dL (0-0.2)
[2021-04-06 07:14] LABS: Platelet Estimate INCR
[2021-04-06 07:15] LABS: Blood Morphology Comment NOT SEEN (NOT SEEN)
[2021-04-06] MEDS: INSULIN -REGULAR HUMAN 50 UNIT/0.5 ML ML SQ SCH ×4 (08:49→22:15)
[2021-04-06] MEDS: METHYLPREDNISOLONE 125 MG INJ IV SCH ×3 (08:50→17:02)
[2021-04-06] MEDS: BARICITINIB 2 MG TABLET PO SCH (08:52)
[2021-04-06] MEDS: VITAMIN D 1000 UNIT TAB PO SCH (08:52)
[2021-04-06] MEDS: ASCORBIC ACID 500 MG TABLET PO SCH ×4 (08:53→20:41)
[2021-04-06] MEDS: THIAMINE HCL 100 MG TABLET PO SCH (08:53)
[2021-04-06] MEDS: ASPIRIN EC 81 MG TAB PO SCH (08:53)
[2021-04-06] MEDS: levoFLOXacin 750 MG TAB PO SCH (08:53)
[2021-04-06] MEDS: APIXABAN 5 MG TABLET PO SCH ×2 (08:53→20:42)
[2021-04-06] MEDS: ZINC SULFATE 220 MG CAP PO SCH (08:53)
[2021-04-06] MEDS: ENSURE HIGH PROTEIN 237 ML CAN PO SCH ×2 (08:54→22:15)
[2021-04-06] MEDS ORDERED: MAGNES/ALUMIN/SIMET 30ML UCUP PO PRN (15:28)
--- NOTE | 2021-04-06 19:21 | P.PN ---
Subjective Date of Service: 04/06/21 Chief Complaint: COVID-19 pneumonia, hypoxia Patient maintained on 15 L oxygen by nasal cannula. No major changes. Physical Examination - Vital Signs Temperature: 97.7 F Blood Pressure: 143/86 Pulse: 106 Respirations: 20 Pulse Ox (%): 89 - Physical Exam General: Alert, In no apparent distress Neck: JVD not distended Respiratory: Other (Nonlabored breathing) Cardiovascular: Regular rate/rhythm, Normal S1 S2 Gastrointestinal: Soft and benign, Non-distended Musculoskeletal: No swelling Integumentary: No rashes Neurological: Normal strength at 5/5 x4 extr, Cranial nerves 3-12 intact Assessment And Plan Physician Review Additional Text: OProblem list Acute hypoxic respiratory failure secondary to COVID-19 pneumonia Diabetes mellitus type 2, yrf-szvrnft-fhdanwuxe Hypertension Hyperlipidemia CLL Continue treatment per COVID protocol, IV steroids, vitamin supplementation, oxygen supplementation Wean oxygen as tolerated Pulmonology is following. Baricitinib started 03/31 Leukocytosis continues to worsen, likely secondary to CLL. Worsening WBC but with predominant lymphocytic differential. No treatment needed regarding CLL at this time. Continue Levaquin. Resume prone position as tolerated. Incentive spirometry. VTE: eliquis
[2021-04-06] MEDS: ATORVASTATIN 40 MG TAB PO SCH (20:41)
[2021-04-06] MEDS: FAMOTIDINE 20 MG TAB PO SCH (20:42)
[2021-04-07] MEDS: METHYLPREDNISOLONE 125 MG INJ IV SCH ×3 (00:13→20:00)
[2021-04-07 06:50] LABS: Basophils % 0.1 % (0-1.3); Lymphocytes % 64.5 % (15.3-44.8); MPV 7.1 fL (7.6-11.3); RBC Red Blood Cell Count 4.43 M/uL (4.33-5.43)
[2021-04-07 07:02] LABS: ALT/SGPT 87 U/L (12-78); AST/SGOT 65 U/L (15-37); Albumin 2.6 g/dL (3.4-5.0); Alkaline Phosphatase 81 U/L (45-117); BUN Blood Urea Nitrogen 35 mg/dL (7-18); Bicarbonate 28 mmol/L (21-32); Bilirubin Direct 0.3 mg/dL (0-0.2); Bilirubin Total 0.9 mg/dL (0.2-1.0); Glucose Level 212 mg/dL (74-106); Potassium 5.2 mmol/L (3.5-5.1); Protein, Total 6.4 g/dL (6.4-8.2); Sodium Level 136 mmol/L (136-145)
[2021-04-07] MEDS: INSULIN -REGULAR HUMAN 50 UNIT/0.5 ML ML SQ SCH ×4 (07:30→21:00)
[2021-04-07] MEDS: VITAMIN D 1000 UNIT TAB PO SCH (08:56)
[2021-04-07] MEDS: ASPIRIN EC 81 MG TAB PO SCH (08:56)
[2021-04-07] MEDS: BARICITINIB 2 MG TABLET PO SCH (08:56)
[2021-04-07] MEDS: ZINC SULFATE 220 MG CAP PO SCH (08:57)
[2021-04-07] MEDS: ASCORBIC ACID 500 MG TABLET PO SCH ×4 (08:57→20:01)
[2021-04-07] MEDS: APIXABAN 5 MG TABLET PO SCH ×2 (08:57→20:01)
[2021-04-07] MEDS: FAMOTIDINE 20 MG TAB PO SCH ×2 (08:57→20:01)
[2021-04-07] MEDS: THIAMINE HCL 100 MG TABLET PO SCH (08:57)
[2021-04-07] MEDS: ENSURE HIGH PROTEIN 237 ML CAN PO SCH ×2 (09:00→20:01)
[2021-04-07] MEDS: levoFLOXacin 750 MG TAB PO SCH (09:02)
[2021-04-07 09:46] LABS: Blood Morphology Comment NOT SEEN (NOT SEEN); Platelet Estimate ADEQ
--- NOTE | 2021-04-07 16:11 | P.PN ---
Subjective Date of Service: 04/07/21 Chief Complaint: COVID-19 pneumonia, hypoxia Patient oxygen requirement is decreased. Oxygen now weaned down to 8-10L. He has no complain today. Physical Examination - Vital Signs Temperature: 98 F Blood Pressure: 133/84 Pulse: 87 Respirations: 18 Pulse Ox (%): 92 - Physical Exam General: Alert, In no apparent distress Neck: JVD not distended Respiratory: Other (Nonlabored breathing) Cardiovascular: Regular rate/rhythm, Normal S1 S2 Gastrointestinal: Soft and benign, Non-distended Musculoskeletal: No swelling Integumentary: No rashes Neurological: Normal strength at 5/5 x4 extr Assessment And Plan Physician Review Additional Text: OProblem list Acute hypoxic respiratory failure secondary to COVID-19 pneumonia Diabetes mellitus type 2, mqt-hcmzjfm-ywecnivhk Hypertension Hyperlipidemia CLL Continue treatment per COVID protocol, IV steroids, vitamin supplementation, oxygen supplementation Wean oxygen as tolerated Pulmonology is following. Continue Baricitinib started on 03/31 Leukocytosis continues to worsen, likely secondary to CLL. Worsening WBC but with predominant lymphocytic differential. No treatment needed regarding CLL at this time. Continue Levaquin. Resume prone position as tolerated. Incentive spirometry. VTE: eliquis
--- NOTE | 2021-04-07 16:21 | P.PN ---
Subjective Date of Service: 04/07/21 Chief Complaint: COVID-19 pneumonia, hypoxia Not doing well still requiring high concentrations of oxygen Review of Systems General: Weakness Respiratory: Shortness of Breath Physical Examination - Vital Signs Temperature: 98 F Blood Pressure: 133/84 Pulse: 87 Respirations: 18 Pulse Ox (%): 92 - Physical Exam General: Alert, Oriented x3, Mild distress Assessment & Plan - Problems (Diagnosis) (1) Pneumonia due to COVID-19 virus Current Visit: Yes Status: Acute Plan: Respiratory failure still requiring high concentrations of oxygen white count is now 55,000 history of CLL on 10 L of nasal cannula oxygen reduced dose of Solu- Medrol for now patient is 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
[2021-04-07] MEDS: ATORVASTATIN 40 MG TAB PO SCH (20:01)
[2021-04-07] MEDS: DOXYCYCLINE 100 MG CAP PO SCH (20:01)
[2021-04-08 06:02] LABS: Albumin 2.5 g/dL (3.4-5.0); Bilirubin Direct 0.2 mg/dL (0-0.2); Bilirubin Total 0.8 mg/dL (0.2-1.0)
[2021-04-08] MEDS: INSULIN -REGULAR HUMAN 50 UNIT/0.5 ML ML SQ SCH ×4 (07:30→20:04)
[2021-04-08] MEDS: VITAMIN D 1000 UNIT TAB PO SCH (09:27)
[2021-04-08] MEDS: levoFLOXacin 750 MG TAB PO SCH (09:28)
[2021-04-08] MEDS: DOXYCYCLINE 100 MG CAP PO SCH ×2 (09:28→20:03)
[2021-04-08] MEDS: ASPIRIN EC 81 MG TAB PO SCH (09:28)
[2021-04-08] MEDS: METHYLPREDNISOLONE 125 MG INJ IV SCH ×2 (09:28→20:03)
[2021-04-08] MEDS: APIXABAN 5 MG TABLET PO SCH ×2 (09:28→20:03)
[2021-04-08] MEDS: ASCORBIC ACID 500 MG TABLET PO SCH ×4 (09:28→20:03)
[2021-04-08] MEDS: THIAMINE HCL 100 MG TABLET PO SCH (09:28)
[2021-04-08] MEDS: BARICITINIB 2 MG TABLET PO SCH (09:28)
[2021-04-08] MEDS: ZINC SULFATE 220 MG CAP PO SCH (09:28)
[2021-04-08] MEDS: ENSURE HIGH PROTEIN 237 ML CAN PO SCH ×2 (09:29→20:04)
[2021-04-08] MEDS: FAMOTIDINE 20 MG TAB PO SCH ×2 (09:36→20:03)
--- NOTE | 2021-04-08 10:49 | RAD REPORT ---
EXAM DESCRIPTION: RAD - Chest Single View - 04/08/2021 7:10 am CLINICAL HISTORY: Respiratory failure from coronavirus Chest pain. COMPARISON: Chest Single View dated 04/02/2021; Chest Single View dated 03/31/2021; Chest Single View dated 03/28/2021 FINDINGS: Portable technique limits examination quality. Since 04/02/2021, mild improvement is seen in bilateral pulmonary opacities compatible with mild impr ovement in aeration. The heart is upper limit of normal in size. No displaced fractures. IMPRESSION: Mild improvement in lung aeration seen since 04/02/2021.
--- NOTE | 2021-04-08 14:03 | P.PN ---
Subjective Date of Service: 04/08/21 Chief Complaint: COVID-19 pneumonia, hypoxia Patient on 8-10L of oxygen. He has no complain. Physical Examination - Vital Signs Temperature: 97.4 F Blood Pressure: 130/93 Pulse: 80 Respirations: 10 Pulse Ox (%): 94 - Physical Exam General: Alert, In no apparent distress, Oriented x3 HEENT: Mucous membr. moist/pink Neck: JVD not distended Respiratory: Other (Nonlabored breathing) Cardiovascular: Regular rate/rhythm, Normal S1 S2 Gastrointestinal: Soft and benign, Non-distended Musculoskeletal: No swelling Integumentary: No rashes Neurological: Normal strength at 5/5 x4 extr Assessment And Plan Physician Review Additional Text: OProblem list Acute hypoxic respiratory failure secondary to COVID-19 pneumonia Diabetes mellitus type 2, jhg-dlkxcgw-ylfxcvojc Hypertension Hyperlipidemia CLL Continue treatment per COVID protocol, IV steroids, vitamin supplementation, oxygen supplementation Wean oxygen as tolerated Pulmonology is following. Continue Baricitinib started on 03/31 Leukocytosis continues to worsen, likely secondary to CLL. Worsening WBC but with predominant lymphocytic differential. No treatment needed regarding CLL at this time. Continue Levaquin for persistent leukocytosis. Resume prone position as tolerated. Incentive spirometry. VTE: eliquis
[2021-04-08] MEDS: ATORVASTATIN 40 MG TAB PO SCH (20:03)
[2021-04-09 07:21] LABS: Absolute Lymphocytes (CBC) 37.4 K/uL (0.7-4.9); Basophils % 0.1 % (0-1.3); Hematocrit 42.2 % (39.6-49.0); Lymphocytes % 68.1 % (15.3-44.8); RBC Red Blood Cell Count 4.65 M/uL (4.33-5.43)
[2021-04-09 07:30] LABS: ALT/SGPT 75 U/L (12-78); AST/SGOT 47 U/L (15-37); Albumin 2.5 g/dL (3.4-5.0); Alkaline Phosphatase 71 U/L (45-117); BUN Blood Urea Nitrogen 26 mg/dL (7-18); Bicarbonate 33 mmol/L (21-32); Bilirubin Direct 0.2 mg/dL (0-0.2); Bilirubin Total 0.7 mg/dL (0.2-1.0); Glucose Level 162 mg/dL (74-106); Potassium 5.2 mmol/L (3.5-5.1); Protein, Total 6.1 g/dL (6.4-8.2); Sodium Level 137 mmol/L (136-145)
[2021-04-09] MEDS: INSULIN -REGULAR HUMAN 50 UNIT/0.5 ML ML SQ SCH ×4 (07:30→20:15)
[2021-04-09] MEDS: BARICITINIB 2 MG TABLET PO SCH (08:06)
[2021-04-09] MEDS: ENSURE HIGH PROTEIN 237 ML CAN PO SCH ×2 (08:06→20:15)
[2021-04-09] MEDS: levoFLOXacin 750 MG TAB PO SCH (08:07)
[2021-04-09] MEDS: METHYLPREDNISOLONE 125 MG INJ IV SCH ×2 (08:07→20:13)
[2021-04-09] MEDS: VITAMIN D 1000 UNIT TAB PO SCH (08:07)
[2021-04-09] MEDS: APIXABAN 5 MG TABLET PO SCH ×2 (08:07→20:14)
[2021-04-09] MEDS: ZINC SULFATE 220 MG CAP PO SCH (08:07)
[2021-04-09] MEDS: DOXYCYCLINE 100 MG CAP PO SCH ×2 (08:07→20:14)
[2021-04-09] MEDS: FAMOTIDINE 20 MG TAB PO SCH ×2 (08:07→20:14)
[2021-04-09] MEDS: ASPIRIN EC 81 MG TAB PO SCH (08:08)
[2021-04-09] MEDS: ASCORBIC ACID 500 MG TABLET PO SCH ×4 (08:08→20:14)
[2021-04-09] MEDS: THIAMINE HCL 100 MG TABLET PO SCH (08:08)
--- NOTE | 2021-04-09 11:29 | P.PN ---
Subjective Date of Service: 04/09/21 Chief Complaint: COVID-19 pneumonia, hypoxia Improving oxygen requirements are declining Review of Systems General: Weakness Respiratory: Shortness of Breath Physical Examination - Vital Signs Temperature: 97.2 F Blood Pressure: 141/85 Pulse: 73 Respirations: 21 Pulse Ox (%): 90 - Physical Exam General: Alert, Oriented x3, Cooperative, Mild distress Assessment & Plan - Problems (Diagnosis) (1) Pneumonia due to COVID-19 virus Current Visit: Yes Status: Acute Plan: Respiratory failure oxygen requirements are declining hyperkalemia white count elevated continue to wean down on his oxygen on max therapy had the low-dose Lasix
[2021-04-09] MEDS: FUROSEMIDE 20 MG/ 2ML VIAL IV SCH (12:08)
--- NOTE | 2021-04-09 13:03 | P.PN ---
Subjective Date of Service: 04/09/21 Chief Complaint: COVID-19 pneumonia, hypoxia Patient now on 8L of oxygen by [place]. He has no complain. Physical Examination - Vital Signs Temperature: 97.2 F Blood Pressure: 153/88 Pulse: 78 Respirations: 21 Pulse Ox (%): 90 - Physical Exam General: Alert, In no apparent distress HEENT: Mucous membr. moist/pink Neck: JVD not distended Respiratory: Other (Nonlabored breathing) Cardiovascular: Regular rate/rhythm, Normal S1 S2 Gastrointestinal: Soft and benign, Non-distended Musculoskeletal: No swelling Integumentary: No rashes Neurological: Normal strength at 5/5 x4 extr Assessment And Plan Physician Review Additional Text: OProblem list Acute hypoxic respiratory failure secondary to COVID-19 pneumonia Diabetes mellitus type 2, vew-mehnlin-xaljwrtha Hypertension Hyperlipidemia CLL Continue treatment per COVID protocol, IV steroids, vitamin supplementation, oxygen supplementation Wean oxygen as tolerated Pulmonology is following. Continue Baricitinib started on 03/31 Leukocytosis continues to worsen, likely secondary to CLL. Worsening WBC but with predominant lymphocytic differential. No treatment needed regarding CLL at this time. Continue Levaquin for persistent leukocytosis. Incentive spirometry. VTE: eliquis
[2021-04-09] MEDS: ATORVASTATIN 40 MG TAB PO SCH (20:14)
[2021-04-10 04:05] LABS: ALT/SGPT 73 U/L (12-78); AST/SGOT 49 U/L (15-37); Albumin 2.5 g/dL (3.4-5.0); Alkaline Phosphatase 81 U/L (45-117); BUN Blood Urea Nitrogen 32 mg/dL (7-18); Bicarbonate 31 mmol/L (21-32); Bilirubin Direct 0.2 mg/dL (0-0.2); Bilirubin Total 0.7 mg/dL (0.2-1.0); Glucose Level 259 mg/dL (74-106); Potassium 4.9 mmol/L (3.5-5.1); Protein, Total 6.1 g/dL (6.4-8.2); Sodium Level 135 mmol/L (136-145)
[2021-04-10 04:08] LABS: Absolute Lymphocytes (CBC) 40.5 K/uL (0.7-4.9); Hematocrit 41.1 % (39.6-49.0); MPV 7.6 fL (7.6-11.3); RBC Red Blood Cell Count 4.54 M/uL (4.33-5.43)
[2021-04-10] MEDS: INSULIN -REGULAR HUMAN 50 UNIT/0.5 ML ML SQ SCH ×4 (07:30→20:57)
[2021-04-10] MEDS: BARICITINIB 2 MG TABLET PO SCH (07:49)
[2021-04-10] MEDS: levoFLOXacin 750 MG TAB PO SCH (07:50)
[2021-04-10] MEDS: VITAMIN D 1000 UNIT TAB PO SCH (07:50)
[2021-04-10] MEDS: APIXABAN 5 MG TABLET PO SCH ×2 (07:50→20:57)
[2021-04-10] MEDS: ASPIRIN EC 81 MG TAB PO SCH (07:50)
[2021-04-10] MEDS: ASCORBIC ACID 500 MG TABLET PO SCH ×4 (07:50→20:40)
[2021-04-10] MEDS: FAMOTIDINE 20 MG TAB PO SCH ×2 (07:51→20:40)
[2021-04-10] MEDS: ZINC SULFATE 220 MG CAP PO SCH (07:51)
[2021-04-10] MEDS: DOXYCYCLINE 100 MG CAP PO SCH ×2 (07:51→20:42)
[2021-04-10] MEDS: THIAMINE HCL 100 MG TABLET PO SCH (07:51)
[2021-04-10] MEDS: FUROSEMIDE 20 MG/ 2ML VIAL IV SCH (07:51)
[2021-04-10] MEDS: METHYLPREDNISOLONE 125 MG INJ IV SCH ×2 (07:52→20:41)
[2021-04-10] MEDS: ENSURE HIGH PROTEIN 237 ML CAN PO SCH ×2 (07:53→20:41)
--- NOTE | 2021-04-10 15:09 | P.PN ---
Subjective Date of Service: 04/10/21 Chief Complaint: COVID-19 pneumonia, hypoxia Patient stable on 8L of oxygen by [place]. He has no complain. Physical Examination - Vital Signs Temperature: 97.1 F Blood Pressure: 155/74 Pulse: 90 Respirations: 20 Pulse Ox (%): 92 - Physical Exam General: Alert, In no apparent distress, Oriented x3 HEENT: Mucous membr. moist/pink Neck: JVD not distended Respiratory: Clear to auscultation bilaterally, Normal air movement Cardiovascular: Regular rate/rhythm Gastrointestinal: Soft and benign, Non-distended Musculoskeletal: No swelling Integumentary: No rashes Neurological: Normal strength at 5/5 x4 extr Assessment And Plan Physician Review Additional Text: OProblem list Acute hypoxic respiratory failure secondary to COVID-19 pneumonia Diabetes mellitus type 2, mij-dzdjppp-dvhvxbhpt Hypertension Hyperlipidemia CLL Continue IV steroids, vitamin supplementation. Wean oxygen as tolerated Continue Baricitinib started on 03/31 Leukocytosis continues to worsen, likely secondary to CLL. WBC but with predominant lymphocytic differential. No treatment needed regarding CLL at this time. Patient completed 10 days of Levaquin. Incentive spirometry. VTE: eliquis Disposition: Waiting for oxygen requirement to improved to 4L and Dc home with oxygen.
[2021-04-10] MEDS: ATORVASTATIN 40 MG TAB PO SCH (20:42)
[2021-04-11 03:45] LABS: Absolute Lymphocytes (CBC) 40.9 K/uL (0.7-4.9); Hematocrit 42.1 % (39.6-49.0); Lymphocytes % 66.7 % (15.3-44.8); MPV 7.5 fL (7.6-11.3); RBC Red Blood Cell Count 4.66 M/uL (4.33-5.43)
[2021-04-11 04:23] LABS: ALT/SGPT 70 U/L (12-78); AST/SGOT 43 U/L (15-37); Albumin 2.5 g/dL (3.4-5.0); Alkaline Phosphatase 81 U/L (45-117); BUN Blood Urea Nitrogen 34 mg/dL (7-18); Bicarbonate 31 mmol/L (21-32); Bilirubin Direct 0.2 mg/dL (0-0.2); Bilirubin Total 0.7 mg/dL (0.2-1.0); Ferritin 2584.7 ng/mL (26-388); Glucose Level 233 mg/dL (74-106); Potassium 4.8 mmol/L (3.5-5.1); Protein, Total 6.2 g/dL (6.4-8.2); Sodium Level 135 mmol/L (136-145)
[2021-04-11 04:29] LABS: C-Reactive Protein < 2.90 mg/L (<3.00)
[2021-04-11 04:55] LABS: Blood Morphology Comment NOT SEEN (NOT SEEN); Platelet Estimate ADEQ
[2021-04-11] MEDS: INSULIN -REGULAR HUMAN 50 UNIT/0.5 ML ML SQ SCH ×4 (07:30→20:04)
[2021-04-11] MEDS: ZINC SULFATE 220 MG CAP PO SCH (08:44)
[2021-04-11] MEDS: METHYLPREDNISOLONE 125 MG INJ IV SCH ×2 (08:44→20:04)
[2021-04-11] MEDS: ENSURE HIGH PROTEIN 237 ML CAN PO SCH ×2 (08:44→20:05)
[2021-04-11] MEDS: DOXYCYCLINE 100 MG CAP PO SCH ×2 (08:44→20:04)
[2021-04-11] MEDS: BARICITINIB 2 MG TABLET PO SCH (08:45)
[2021-04-11] MEDS: ASPIRIN EC 81 MG TAB PO SCH (08:45)
[2021-04-11] MEDS: VITAMIN D 1000 UNIT TAB PO SCH (08:45)
[2021-04-11] MEDS: FAMOTIDINE 20 MG TAB PO SCH ×2 (08:45→20:04)
[2021-04-11] MEDS: THIAMINE HCL 100 MG TABLET PO SCH (08:45)
[2021-04-11] MEDS: ASCORBIC ACID 500 MG TABLET PO SCH ×4 (08:46→20:04)
[2021-04-11] MEDS: FUROSEMIDE 20 MG/ 2ML VIAL IV SCH (08:46)
[2021-04-11] MEDS: APIXABAN 5 MG TABLET PO SCH ×2 (08:46→20:04)
[2021-04-11] MEDS: levoFLOXacin 750 MG TAB PO SCH (08:46)
--- NOTE | 2021-04-11 15:47 | P.PN ---
Subjective Date of Service: 04/11/21 Chief Complaint: COVID-19 pneumonia, hypoxia Subjective: Improving (feeling better, ambulating easier, breathing more comfortably, going to bathroom) Review of Systems 10-point ROS is otherwise unremarkable Physical Examination - Vital Signs Temperature: 97.4 F Blood Pressure: 166/96 Pulse: 109 Respirations: 20 Pulse Ox (%): 92 Assessment & Plan Physician Review Additional Text: Physical exam GEN: Alert, oriented, NAD HEENT: Normal conjunctiva, sclera anicteric CV: Regular rate and rhythm, no edema Pulm: Nonlabored respiration on 8L [place] ABD: Soft, nontender, nondistended Neuro: Normal speech, normal affect Problem list Acute hypoxic respiratory failure secondary to COVID-19 pneumonia Diabetes mellitus type 2, amc-couzfcy-nndzzyvto Hypertension Hyperlipidemia CLL Continue IV steroids, vitamin supplementation. Wean oxygen as tolerated Baricitinib started on 03/31 Leukocytosis continues to worsen, suspect secondary to CLL. WBC but with predominant lymphocytic differential. No treatment needed regarding CLL at this time. Patient completed 10 days of Levaquin. Incentive spirometry. VTE: eliquis Disposition: Waiting for oxygen requirement to improved to 4L and Dc home with oxygen. anticipate dc home in 2-3 days Time Spent Managing Pts Care (In Minutes): 35
[2021-04-11] MEDS: ATORVASTATIN 40 MG TAB PO SCH (20:04)
[2021-04-12 04:10] LABS: Absolute Lymphocytes (CBC) 38.7 K/uL (0.7-4.9); Basophils % 0.1 % (0-1.3); Hematocrit 40.7 % (39.6-49.0); Lymphocytes % 68.1 % (15.3-44.8); MPV 7.4 fL (7.6-11.3)
[2021-04-12 05:00] LABS: ALT/SGPT 67 U/L (12-78); AST/SGOT 40 U/L (15-37); Albumin 2.5 g/dL (3.4-5.0); Alkaline Phosphatase 79 U/L (45-117); BUN Blood Urea Nitrogen 30 mg/dL (7-18); Bicarbonate 31 mmol/L (21-32); Bilirubin Direct 0.2 mg/dL (0-0.2); Bilirubin Total 0.7 mg/dL (0.2-1.0); Ferritin 2556.6 ng/mL (26-388); Glucose Level 220 mg/dL (74-106); Potassium 5.1 mmol/L (3.5-5.1); Protein, Total 5.9 g/dL (6.4-8.2); Sodium Level 134 mmol/L (136-145)
[2021-04-12 05:01] LABS: C-Reactive Protein < 2.90 mg/L (<3.00)
[2021-04-12 05:08] LABS: Smudge Cells 24
[2021-04-12 05:09] LABS: Blood Morphology Comment NOT SEEN (NOT SEEN); Platelet Estimate ADEQ
--- NOTE | 2021-04-12 06:24 | P.PN ---
Subjective Date of Service: 04/12/21 Chief Complaint: COVID-19 pneumonia, hypoxia Physical Examination - Vital Signs Temperature: 97.7 F Blood Pressure: 137/71 Pulse: 76 Respirations: 18 Pulse Ox (%): 99 Assessment & Plan Physician Review Additional Text: Physical exam GEN: Alert, oriented, NAD HEENT: Normal conjunctiva, sclera anicteric CV: Regular rate and rhythm, no edema Pulm: Nonlabored respiration on 8L [place] ABD: Soft, nontender, nondistended Neuro: Normal speech, normal affect Problem list Acute hypoxic respiratory failure secondary to COVID-19 pneumonia Diabetes mellitus type 2, xlf-wduomrg-yysetdwrt Hypertension Hyperlipidemia CLL Continue IV steroids, vitamin supplementation. Wean oxygen as tolerated Baricitinib started on 03/31 Leukocytosis continues to worsen, suspect secondary to CLL. WBC but with predominant lymphocytic differential. No treatment needed regarding CLL at this time. Patient completed 10 days of Levaquin. Incentive spirometry. VTE: eliquis Disposition: Waiting for oxygen requirement to improved to 4L and Dc home with oxygen. anticipate dc home in 2-3 days
[2021-04-12] MEDS: INSULIN -REGULAR HUMAN 50 UNIT/0.5 ML ML SQ SCH ×2 (07:30→11:30)
[2021-04-12] MEDS: VITAMIN D 1000 UNIT TAB PO SCH (07:59)
[2021-04-12] MEDS: ASPIRIN EC 81 MG TAB PO SCH (07:59)
[2021-04-12] MEDS: APIXABAN 5 MG TABLET PO SCH (07:59)
[2021-04-12] MEDS: BARICITINIB 2 MG TABLET PO SCH (07:59)
[2021-04-12] MEDS: ZINC SULFATE 220 MG CAP PO SCH (08:00)
[2021-04-12] MEDS: METHYLPREDNISOLONE 125 MG INJ IV SCH (08:00)
[2021-04-12] MEDS: ASCORBIC ACID 500 MG TABLET PO SCH ×2 (08:00→12:38)
[2021-04-12] MEDS: ENSURE HIGH PROTEIN 237 ML CAN PO SCH (08:00)
[2021-04-12] MEDS: THIAMINE HCL 100 MG TABLET PO SCH (08:00)
[2021-04-12] MEDS: FAMOTIDINE 20 MG TAB PO SCH (08:00)
[2021-04-12] MEDS: DOXYCYCLINE 100 MG CAP PO SCH (08:00)
[2021-04-12 08:11] VITALS: O2SAT 93
[2021-04-12 12:52] VITALS: BP 129/75; TEMP 97.7
--- NOTE | 2021-04-12 14:04 | P.DS ---
Admission Date: 03/29/21 Discharge Date: 04/12/21 Disposition: ROUTINE DISCHARGE Discharge Condition: GOOD Reason for Admission: COVID-19 pneumonia, hypoxia Consultations: Pulmonology - Dr. Piedra Heme/Onc Procedures: CXR (03/28): Mild to moderate ill-defined bilateral airspace opacities. The heart size is within normal limits.No acute osseous abnormality. No significant pleural effusions or pneumothorax. IMPRESSION: Bilateral airspace disease concerning for multifocal pneumonia. Reference subsequent chest CT. CTA Chest (03/29): 1. No pulmonary embolus. 2. Multifocal bilateral peripheral groundglass opacities. Commonly reported imaging features of viral pneumonia are present. Other processes such as influenza pneumonia and organizing pneumonia, as can be seen with drug toxicity and connective tissue disease, can cause a similar imaging pattern. 3. Hepatic steatosis. 4. Diverticulosis without evidence of acute diverticulitis. CXR (03/31): Stable bilateral COVID-19 pneumonia pattern from March 28. CXR (04/02): Bilateral pneumonia findings, more notable on the left base, similar to slightly improved from comparison. CXR (04/08): Mild improvement in lung aeration seen since 04/02/2021. Problem list Acute hypoxic respiratory failure secondary to COVID-19 pneumonia Diabetes mellitus type 2, [id number] Hypertension Hyperlipidemia CLL Brief History of Present Illness: 60-year-old male with history of diabetes mellitus type 2, hypertension, hyperlipidemia, CLL presents emergency department for shortness of breath. Patient reports testing positive for Covid initially on 03/25/2021 had received 1 dose of the vaccine at the end of February. Patient was noted to be hypoxic on room air saturating in the high 80s at rest. Patient evaluated in the ER labs were significant for white blood cell count 15.2 D-dimer 703 sodium 132 chloride 95 BUN 20 glucose 126 ferritin 1367 C-reactive protein 159 procalcitonin 0.31. ED provider wishes to admit for further evaluation and management of COVID-19 pneumonia with hypoxia. Hospital Course: Treated with steroids, vitamin supplementation, Baricitinib, and had gradual improvement in his symptoms. He was weaned down to 4L NC and breathing more comfortably with some mild dyspnea. Discharged home to continue steroids for 2 weeks and follow up with Dr. Piedra in ~1 week. He had a significant leukocytosis during his hospitalization up to 60k. He was empirically covered with levaquin and completed 10 days. Heme/Onc was consulted and felt his leukocytosis was partly due to his CLL and steroids. Recommended no further eval/treatment regarding his CLL. Vital Signs/Physical Exam: Physical exam GEN: Alert, oriented, NAD HEENT: Normal conjunctiva, sclera anicteric CV: Regular rate and rhythm, no edema Pulm: Nonlabored respiration on 4L NC ABD: Soft, nontender, nondistended Neuro: Normal speech, normal affect Temp Pulse Resp BP Pulse Ox 97.7 F 88 20 129/75 94 04/12/21 12:00 04/12/21 12:00 04/12/21 12:00 04/12/21 12:00 04/12/21 12:00 Laboratory Data at Discharge: WBC 56.90 K/uL (4.3-10.9) H* 04/12/21 03:50 Hgb 13.1 g/dL (13.6-17.9) L 04/12/21 03:50 Hct 40.7 % (39.6-49.0) 04/12/21 03:50 Plt Count 568 K/uL (152-406) H 04/12/21 03:50 PT 16.0 SECONDS (9.5-12.5) H 03/29/21 01:50 INR 1.39 03/29/21 01:50 APTT 33.7 SECONDS (24.3-36.9) 03/29/21 01:50 Sodium 134 mmol/L (136-145) L 04/12/21 03:50 Potassium 5.1 mmol/L (3.5-5.1) 04/12/21 03:50 BUN 30 mg/dL (7-18) H 04/12/21 03:50 Creatinine 0.79 mg/dL (0.55-1.3) 04/12/21 03:50 Glucose 220 mg/dL (74-106) H 04/12/21 03:50 Magnesium 2.5 mg/dL (1.8-2.4) H 04/04/21 05:19 Total Bilirubin 0.7 mg/dL (0.2-1.0) 04/12/21 03:50 AST 40 U/L (15-37) H 04/12/21 03:50 ALT 67 U/L (12-78) 04/12/21 03:50 Alkaline Phosphatase 79 U/L (45-117) 04/12/21 03:50 Triglycerides 140 mg/dL (<150) 03/30/21 03:00 Cholesterol 129 mg/dL (<200) 03/30/21 03:00 HDL Cholesterol 19 mg/dL (40-60) L 03/30/21 03:00 Cholesterol/HDL Ratio 6.79 03/30/21 03:00 Lipase 159 U/L (73-393) 03/29/21 01:50 Home Medications: Chlorthalidone 1 tab PO SEECOM 03/30/21 Metformin HCl [Metformin HCl ER] 2 tab PO SEECOM 03/30/21 Olmesartan Medoxomil 1 tab PO DAILY 03/30/21 Rosuvastatin Calcium [Crestor] 1 tab PO DAILY 03/30/21 Semaglutide [Ozempic] 0.5 mg SEECOM 03/30/21 Aspirin [Aspirin EC] 2 tab PO DAILY 30 Days #60 tablet. 04/12/21 predniSONE [Prednisone] 20 mg PO SEECOM 14 Days #21 tablet 04/12/21 New Medications: Aspirin [Aspirin EC] 2 tab PO DAILY 30 Days #60 tablet. predniSONE [Prednisone] 20 mg PO SEECOM 14 Days #21 tablet Physician Discharge Instructions: You were found to have COVID-19 pneumonia. You had improvement with steroids, vitamin supplementation, and oxygen supplementation. You are discharged home to continue treatment with prednisone (steroids) and oxygen. Recommend taking 162mg aspirin daily for 30 days. Follow up with Dr. Piedra ([employer]) in ~1 week. Call his office to schedule the appointment. Diet: ADA Activity: Ad macrina Followup: Spencer Piedra MD [ACTIVE - CAN ADMIT] - 1 Week (call for appointment.) Avery Sanders MD [Primary Care Provider] - 1 Week (Call for appointment.) Time spent managing pt's care (in minutes): 45
== END 2021-04-12 15:45 | disposition home or self-care (01) | DRG 177 ==
LOC: ER 20:18 → ERHOLD 03-29 04:34 → 4TH 03-29 18:04
PROVIDERS: ADMIT Hospitalist; ATTEND Hospitalist
DX: U07.1 COVID-19 (principal); J12.82 Pneumonia due to coronavirus disease 2019; J96.01 Acute respiratory failure with hypoxia; C91.10 Chronic lymphocytic leukemia of B-cell type not having achieved remission; E11.9 Type 2 diabetes mellitus without complications; I10 Essential (primary) hypertension; E78.5 Hyperlipidemia, unspecified; G47.33 Obstructive sleep apnea (adult) (pediatric); D72.829 Elevated white blood cell count, unspecified; E87.5 Hyperkalemia
CPT/HCPCS: 36415; 71045; 71275; 80048; 80053; 80061; 80076; 81003; 81015; 82248; 82728; 82947; 83036; 83605; 83690; 83735; 84145; 84439; 84443; 84484; 85025; 85379; 85610; 85730; 86140; 87040; 93005; 94760; 96360; 96361; 99284; J1940; J2920; J2930; J7030; Q9967; U0003